=== PATIENT | female | born 1965 | race Caucasian/White ===

== ENCOUNTER → 2016-08-21 | Outpatient (CLI) | payer BC, OTHER ==
[~2016-08-21] MED LIST: AMOXICILLIN 50500 MG; BACTRIM DS TAB1 EACH PO; FLAGYL500 MG PO; FLEXERIL PO; MACROBID 100 M100 M1 PO; MEDROL DOSPAK21 TAB PO; MOTRIN 600 MG600 M1 OR; NAPROSYN500 MG PO; NOHOMEMEDICATIONS; NORCO 5-325 TA1 EACH PO; PEPCID40 MG PO; PREDNISONE 20 M20 MG PO; PYRIDIUM100 M1 PO; ULTRAM 50MG TAB50 MG PO; ZOFRAN ODT4 MG PO
== END ==
LOC: CAT 09:31
DX: R31.9 Hematuria, unspecified (principal); R10.32 Left lower quadrant pain

== ENCOUNTER → 2017-06-18 | Outpatient (CLI) | payer BC, OTHER ==
[~2017-06-18] MED LIST changes: +BACTRIM DS TAB1 EAC1 PO; +CIPROFLOXACIN500 M1 PO; +IBUPROFEN 600600 M1 PO; +PHENAZOPYRIDIN100 M1 PO
== END ==
LOC: RAD 13:24
DX: Z12.31 Encounter for screening mammogram for malignant neoplasm of breast (principal)

== ENCOUNTER → 2017-06-21 | Outpatient (CLI) | payer BC, OTHER | LOC: ULTRA 10:32 | DX: N63.10 Unspecified lump in the right breast, unspecified quadrant (principal); N63.20 Unspecified lump in the left breast, unspecified quadrant ==

== ENCOUNTER 2017-10-15 02:31 | Emergency (ER) | payer BC, OTHER ==
[~2017-10-15] VITALS: Ht 165.1 cm; Wt 79.8 kg
[~2017-10-15 02:31] MED LIST changes: -BACTRIM DS TAB1 EAC1 PO; -IBUPROFEN 600600 M1 PO; -PHENAZOPYRIDIN100 M1 PO
[2017-10-15 02:44] LABS: URINE BILIRUBIN NEGATIVE (Negative); URINE BLOOD NEGATIVE (Negative); URINE CLARITY CLEAR; URINE COLOR YELLOW; URINE GLUCOSE-RANDOM* NEGATIVE (Negative); URINE KETONES NEGATIVE (Negative); URINE NITRITE-REFLEX NEGATIVE (Negative); URINE PROTEIN (DIPSTICK) NEGATIVE (Negative); URINE SPECIFIC GRAVITY <= 1.005 (1.005-1.035); URINE UROBILINOGEN 0.2 E.U./dl (0.2-1.0)
[2017-10-15 02:46] LABS: URINE LEUKOCYTES-REFLEX 1+ (Negative)
[2017-10-15 02:53] LABS: BACTERIA-REFLEX 1-9 Few /HPF (None Seen); CASTS None Seen /LPF (None Seen); CRYSTALS None Seen /LPF (None Seen); MUCUS 0-3 Light strn/LPF (None Seen); SQUAMOUS 0-3 Few /LPF (0-3); URINE RBC None Seen /HPF (0-2); URINE WBC-REFLEX 6-15 Few /HPF (0-5)
[2017-10-15] MEDS ORDERED: BACTRIM DS TAB1 EAC1 PO (02:59)
[2017-10-15] MEDS ORDERED: PHENAZOPYRIDIN100 M1 PO (02:59)
[2017-10-15 03:22] VITALS: BP 131/89
== END 2017-10-15 03:23 | disposition home or self-care (01) ==
LOC: ER 02:31
PROVIDERS: Emergency Medicine
DX: N39.0 Urinary tract infection, site not specified (principal)

== ENCOUNTER 2017-10-27 16:26 | Emergency (ER) | payer BC, OTHER ==
[~2017-10-27] VITALS: Ht 165.1 cm; Wt 83.9 kg
[~2017-10-27 16:26] MED LIST changes: +BACTRIM DS TAB1 EAC1 PO; +PHENAZOPYRIDIN100 M1 PO
[2017-10-27] MEDS ORDERED: IBUPROFEN 600600 M1 PO (17:39)
[2017-10-27] MEDS ORDERED: NORCO 5-325 TA1 EACH PO (17:39)
[2017-10-27 18:30] VITALS: BP 139/73
== END 2017-10-27 18:30 | disposition home or self-care (01) ==
LOC: ER 16:26
DX: S93.401A Sprain of unspecified ligament of right ankle, initial encounter (principal); S01.511A Laceration without foreign body of lip, initial encounter; W18.00XA Striking against unspecified object with subsequent fall, initial encounter; Y93.89 Activity, other specified; Y92.89 Other specified places as the place of occurrence of the external cause; Y99.8 Other external cause status

== ENCOUNTER 2018-03-19 01:30 | Emergency (ER) | payer BC, OTHER ==
[~2018-03-19] VITALS: Ht 165.1 cm; Wt 79.8 kg
[~2018-03-19 01:30] MED LIST changes: +IBUPROFEN 600600 M1 PO
[2018-03-19] MEDS ORDERED: FLAGYL500 MG PO (03:42)
[2018-03-19 03:51] VITALS: BP 138/97
== END 2018-03-19 03:52 | disposition home or self-care (01) ==
LOC: ER 01:30
DX: N76.0 Acute vaginitis (principal); B96.89 Other specified bacterial agents as the cause of diseases classified elsewhere

== ENCOUNTER → 2018-04-08 | Outpatient (CLI) | payer BC, OTHER | LOC: ULTRA 09:27 | DX: R10.32 Left lower quadrant pain (principal); R10.2 Pelvic and perineal pain ==

== ENCOUNTER 2018-05-24 18:27 | Emergency (ER) | payer BC, OTHER ==
[~2018-05-24] VITALS: Ht 175.3 cm; Wt 72.6 kg
[2018-05-24 19:09] LABS: URINE BILIRUBIN NEGATIVE (Negative); URINE BLOOD NEGATIVE (Negative); URINE CLARITY CLEAR; URINE COLOR YELLOW; URINE GLUCOSE-RANDOM* NEGATIVE (Negative); URINE KETONES TRACE (Negative); URINE LEUKOCYTES-REFLEX NEGATIVE (Negative); URINE NITRITE-REFLEX NEGATIVE (Negative); URINE PROTEIN (DIPSTICK) NEGATIVE (Negative); URINE UROBILINOGEN 0.2 E.U./dl (0.2-1.0)
[2018-05-24] MEDS ORDERED: CYCLOBENZAPRINE5 MG PO (20:48)
[2018-05-24] MEDS ORDERED: NORCO 5-325 TA1 EACH PO (20:48)
[2018-05-24] MEDS ORDERED: MOBIC7.5 MG PO (20:48)
[2018-05-24 21:16] VITALS: BP 116/71
== END 2018-05-24 21:17 | disposition home or self-care (01) ==
LOC: ER 18:27
PROVIDERS: Physician Assistant
DX: M62.830 Muscle spasm of back (principal); M54.6 Pain in thoracic spine

== ENCOUNTER 2019-06-26 00:15 | Emergency (ER) | payer BC, OTHER ==
[~2019-06-26] VITALS: Ht 165.1 cm; Wt 84.8 kg
[~2019-06-26 00:15] MED LIST changes: +CYCLOBENZAPRINE5 MG PO; +MOBIC7.5 MG PO
[2019-06-26] MEDS ORDERED: PREDNISONE 20 M20 MG PO (01:22)
[2019-06-26] MEDS ORDERED: TESSALON PERLE100 MG PO (01:22)
[2019-06-26] MEDS ORDERED: IBUPROFEN 600600 M1 PO (01:22)
[2019-06-26 01:36] VITALS: BP 139/100
== END 2019-06-26 01:35 | disposition home or self-care (01) ==
LOC: ER 00:15
DX: J06.9 Acute upper respiratory infection, unspecified (principal); J04.0 Acute laryngitis; Z98.51 Tubal ligation status

== ENCOUNTER → 2020-05-09 | Outpatient (CLI) | payer BC ==
[~2020-05-09] MED LIST changes: +TESSALON PERLE100 MG PO
== END ==
LOC: LAB 13:42
PROVIDERS: ATTEND Family Medicine
DX: U07.1 COVID-19 (principal)